=== PATIENT | female | born 1960 | race Caucasian/White ===

== ENCOUNTER → 2016-07-16 | Outpatient (CLI) | payer BC ==
--- NOTE | 2016-07-17 12:32 | MAMMOGRAPHY REPORT ---
BILATERAL DIGITAL SCREENING MAMMOGRAM TOMOSYNTHESIS WITH CAD: 07/16/2016 CLINICAL HISTORY: Routine screening examination. TECHNIQUE: Breast tomosynthesis in addition to standard 2D mammography was performed. Current study was also evaluated with a Computer Aided Detection (CAD) system. COMPARISON: Comparison is made to exams dated: 07/12/2015 mammogram, 07/08/2014 mammogram, 06/17/2012 mammogram - [facility], 05/27/2006, 10/11/2009 mammogram, and 01/09/2011 mammogram - [facility]. BREAST COMPOSITION: The tissue of both breasts is heterogeneously dense, which may obscure small ma sses. FINDINGS: There is a stable metallic biopsy marker in the lower outer quadrant of the left breast. There are a few punctate microcalcifications near the biopsy marker, which appears similar in number dating back to at least 01/09/2011, therefore likely benign. No new suspicious mass, architectural distortion or cluster of microcalcifications is seen. IMPRESSION: ACR BI-RADS CATEGORY 1: NEGATIVE There is no mammographic evidence of malignancy. A 1 year screening mammogram is recommended. The p atient will receive written notification of the results. Approximately 10% of breast cancers are not detected with mammography. A negative mammographic repor t should not delay biopsy if a clinically suggestive mass is present. Annette Zavala M.D. ay/:07/16/2016 16:56:30 Boat Builder And Repairer: Sunni MELCHOR)(Jazmine), [facility] letter sent: Normal 1/2 BI-RADS Code: ACR BI-RADS Category 1: Negative
== END | disposition home or self-care (01) ==
LOC: C.MAMM 16:20
PROVIDERS: ATTEND Obstetrics & Gynecology
DX: Z12.31 Encounter for screening mammogram for malignant neoplasm of breast (principal)

== ENCOUNTER → 2016-09-17 | Outpatient (CLI) | payer BC | END | disposition home or self-care (01) | LOC: C.PAPS 12:09 | PROVIDERS: ATTEND Obstetrics & Gynecology | DX: Z01.419 Encounter for gynecological examination (general) (routine) without abnormal findings (principal) ==

== ENCOUNTER → 2017-07-23 | Outpatient (CLI) | payer BC ==
--- NOTE | 2017-07-24 07:47 | MAMMOGRAPHY REPORT ---
BILATERAL DIGITAL SCREENING MAMMOGRAM TOMOSYNTHESIS WITH CAD: 07/23/2017 CLINICAL HISTORY: Routine screening. TECHNIQUE: Breast tomosynthesis in addition to standard 2D mammography was performed. Current study was also evaluated with a Computer Aided Detection (CAD) system. COMPARISON: Comparison is made to exams dated: 07/16/2016 mammogram, 07/12/2015 mammogram, 07/08/2014 m ammogram, 06/17/2012 mammogram, 01/09/2011 mammogram, and 10/11/2009 mammogram - [facility] enter. BREAST COMPOSITION: The tissue of both breasts is heterogeneously dense, which may obscure small mas ses. FINDINGS: There are possible increasing punctate microcalcifications in the central left breast, ant erior to a biopsy marker clip. Additional spot magnification views are recommended. A questionable area of architectural distortion in the lateral left breast on the CC view could represent normal ove rlapping fibroglandular tissue although additional spot compression tomosynthesis views and possible ultrasound are recommended. No other suspicious masses, calcifications, areas of architectural distortion or asymmetries are iden tified bilaterally. IMPRESSION: ACR BI-RADS CATEGORY 0: INCOMPLETE EVALUATION: NEED ADDITIONAL IMAGING EVALUATION The possible increasing microcalcifications in the central left breast and questionable area of archi tectural distortion in the lateral left breast need additional imaging evaluation. The patient will be called to schedule an appointment. Approximately 10% of breast cancers are not detected with mammography. A negative mammographic report should not delay biopsy if a clinically suggestive mass is present. Annette Zavala M.D. ay/:07/23/2017 16:33:51 Medical Care Administrator: Pradeep MELISSA(Zakia)(M), [facility] letter sent: Addl Imaging 0 BI-RADS Code: ACR BI-RADS Category 0: Incomplete Evaluation: Need Additional Imaging Evaluation
== END | disposition home or self-care (01) ==
LOC: C.MAMM 08:01
PROVIDERS: ATTEND Obstetrics & Gynecology
DX: Z12.31 Encounter for screening mammogram for malignant neoplasm of breast (principal); R92.0 Mammographic microcalcification found on diagnostic imaging of breast

== ENCOUNTER → 2017-07-31 | Outpatient (CLI) | payer BC ==
--- NOTE | 2017-07-31 14:41 | MAMMOGRAPHY REPORT ---
UNILATERAL LEFT DIGITAL DIAGNOSTIC MAMMOGRAM TOMOSYNTHESIS: 07/31/2017 CLINICAL HISTORY: Callback from screening mammogram for left breast calcifications and possible left breast architectural distortion. TECHNIQUE: Breast tomosynthesis in addition to standard 2D mammography was performed. Spot magnific ation left CC and MLO views and spot compression left CC and MLO tomosynthesis images were obtained. COMPARISON: Comparison is made to exams dated: 07/23/2017 mammogram, 07/16/2016 mammogram, 07/12/2015 m ammogram, 07/08/2014 mammogram, 06/24/2012 mammogram, and 06/17/2012 mammogram - [facility] enter. BREAST COMPOSITION: The tissue of the left breast is heterogeneously dense, which may obscure small masses. FINDINGS: Spot magnification views of the left breast demonstrate grouped faint punctate calcificatio ns in the left lateral breast at approximately 3:00. A biopsy clip is seen at the site of the calcif ications. The calcifications are not significantly changed compared to the June 2015 exam, and when accounting for technical differences they are also likely not significantly changed compared to the 2012 exam. The calcifications were previously biopsied in 2004, with pathology showing fibrocystic c hange with adenosis, with calcifications present in the specimens. Given that the calcifications wer e previously biopsied and yielded benign pathology and given that they have not significantly changed , the calcifications are considered benign. The area of questionable architectural distortion seen within the left lateral breast on the cc view does not persist on the additional spot compression tomosynthesis views. Normal fibroglandular tissu e is seen in this region, without evidence of a suspicious mass or architectural distortion. IMPRESSION: ACR BI-RADS CATEGORY 2: BENIGN 1. The grouped calcifications in the left breast are not significantly changed compared to the 2016 e xam and likely also the 2012 exam. Given that the calcifications have not significantly changed and given the benign pathology on biopsy in 2004, the calcifications are considered benign. 2. Questionable architectural distortion in the left breast does not persist on the additional views; findings are benign and compatible with normal fibroglandular tissue. There is no mammographic evidence of malignancy. A 1 year screening mammogram is recommended. The pa tient has been verbally notified of the results. Approximately 10% of breast cancers are not detected with mammography. A negative mammographic report should not delay biopsy if a clinically suggestive mass is present. Anupama Amaya M.D. ah/:07/31/2017 14:16:11 Certified Legal Investigator: Melvi MELISSA(R)(M), [facility] letter sent: Normal 1/2 BI-RADS Code: ACR BI-RADS Category 2: Benign
== END | disposition home or self-care (01) ==
LOC: C.MAMM 13:47
PROVIDERS: ATTEND Obstetrics & Gynecology
DX: R92.0 Mammographic microcalcification found on diagnostic imaging of breast (principal); N64.89 Other specified disorders of breast; R92.1 Mammographic calcification found on diagnostic imaging of breast